=== PATIENT | female | born 1965 | race Caucasian/White ===

== ENCOUNTER 2024-11-01 06:25 | Observation (INO) ==
[2024-11-01] MEDS ORDERED: LIDOCAINE 2% PF 5 ML VIAL ONE (06:47)
[2024-11-01] MEDS ORDERED: DEXMEDETOMIDINE HCL 200 MCG/2 ML VIAL ONE (06:47)
[2024-11-01] MEDS ORDERED: TRANEXAMIC ACID 1,000 MG/10 ML VIAL ONE (06:47)
[2024-11-01] MEDS ORDERED: ePHEDrine 50 MG/5 ML SYRINGE (ANEST) IV ONE ×2 (06:47→10:13)
[2024-11-01] MEDS ORDERED: 0.9 % SODIUM CHLORIDE 100 ML IV ONE (06:47)
[2024-11-01] MEDS ORDERED: DEXAMETHASONE 10 MG/ML VIAL ONE (06:47)
[2024-11-01] MEDS ORDERED: METOCLOPRAMIDE 10 MG/2 ML VIAL ONE (06:47)
[2024-11-01] MEDS ORDERED: PHENYLephrine 1 MG/10 ML SYRINGE (ANEST) ONE ×2 (06:47)
[2024-11-01] MEDS ORDERED: GLYCOPYRROLATE 0.2 MG/ML VIAL IV ONE (06:47)
[2024-11-01] MEDS ORDERED: ONDANSETRON 4 MG/2 ML VIAL ONE (06:47)
[2024-11-01] MEDS ORDERED: KETAMINE 50 MG/ML Syringe IV ONE (06:48)
[2024-11-01] MEDS ORDERED: PROPOFOL 200 MG/20 ML VIAL IV ONE (06:49)
[2024-11-01] MEDS ORDERED: MIDAZOLAM 2 MG/2 ML VIAL ONE (06:49)
[2024-11-01] MEDS: ceFAZolin 2 GM in DEXTROSE 5% IN WATER 50 ML IV SCH (07:04)
[2024-11-01] MEDS: SCOPOLAMINE 1 PATCH PATCH TOPICAL ONE (07:21)
[2024-11-01] MEDS ORDERED: HYDROmorphone 0.5 MG/0.5 ML SYRINGE ONE (07:49)
[2024-11-01] MEDS: THROMBIN (BOVINE) 5,000 UNIT VIAL TOPICAL ONE (08:00)
[2024-11-01] MEDS: GELATIN SPONGE,ABSORBABLE 1 EACH SPONGE TOPICAL ONE (08:00)
[2024-11-01] MEDS ORDERED: FAMOTIDINE/PF 20 MG/2 ML VIAL IV ONE (08:25)
[2024-11-01] MEDS ORDERED: fentaNYL 100 MCG/2 ML VIAL ONE (09:34)
[2024-11-01] MEDS: BUPIVACAINE 0.25% 50 ML VIAL IJ ONE (10:30)
[2024-11-01] MEDS ORDERED: KETOROLAC 30 MG/ML VIAL ONE (10:37)
[2024-11-01] MEDS ORDERED: HYDROCODONE/APAP 7.5/325MG TABLET PO PRN (10:40)
[2024-11-01] MEDS ORDERED: BENZOCAINE/MENTHOL 1 LOZENGE PO PRN (10:40)
[2024-11-01] MEDS ORDERED: ONDANSETRON 4 MG ODT TABLET SL PRN (10:40)
[2024-11-01] MEDS ORDERED: PROMETHAZINE 25 MG/ML VIAL IV PRN (10:40)
[2024-11-01] MEDS ORDERED: ONDANSETRON 4 MG/2 ML VIAL IV PRN (11:05)
[2024-11-01] MEDS ORDERED: NALOXONE HCL 0.4 MG/ML VIAL IV PRN (11:05)
[2024-11-01] MEDS ORDERED: IPRATROPIUM/ALBUTEROL 3 ML AMPUL.NEB NEB PRN (11:05)
[2024-11-01] MEDS ORDERED: HYDROmorphone 0.5 MG/0.5 ML SYRINGE IV PRN (11:05)
[2024-11-01] MEDS: ONDANSETRON 4 MG/2 ML VIAL IV PRN (11:06)
[2024-11-01] MEDS: fentaNYL 100 MCG/2 ML VIAL IV PRN (11:12)
[2024-11-01] MEDS: METHOCARBAMOL 750 MG TABLET PO PRN (12:21)
[2024-11-01] MEDS: LACTATED RINGERS 1,000 ML IV SCH ×2 (13:50→13:51)
[2024-11-01] MEDS: 0.9 % SODIUM CHLORIDE 10 ML SYRINGE IV SCH (14:18)
[2024-11-01] MEDS: ceFAZolin 1 GM VIAL IV SCH (15:01)
[2024-11-01] MEDS: HYDROmorphone 1 MG/ML SYRINGE IV PRN (15:01)
[2024-11-01] MEDS: 0.9 % SODIUM CHLORIDE 1,000 ML IV SCH (15:02)
[2024-11-01] MEDS: SENNOSIDES 1 TABLET PO SCH (20:47)
[2024-11-01] MEDS: valACYclovir 500 MG TABLET PO SCH (21:15)
[2024-11-02] MEDS: HYDROmorphone 2 MG TABLET PO PRN (01:26)
[2024-11-02 06:38] LABS: Hemoglobin 10.3 g/dL (11.2-15.7)
[2024-11-02 06:47] LABS: Blood Urea Nitrogen 10 mg/dL (6-20); Calcium 8.8 mg/dL (8.6-10.4); Carbon Dioxide 25 mmol/L (22-30); Chloride 106 mmol/L (96-108); Glomerular Filtration Rate 94; Glucose 101 mg/dL (70-105); Potassium 4.3 mmol/L (3.3-5.1); Sodium 141 mmol/L (133-145)
[2024-11-02] MEDS: ACETAMINOPHEN 325 MG TABLET PO PRN (07:46)
[2024-11-02] MEDS: KETOROLAC 30 MG/ML VIAL IV ONE (07:54)
[2024-11-02] MEDS: ESTRADIOL 1 MG TABLET PO SCH (08:24)
[2024-11-02] MEDS: MAGNESIUM OXIDE 400 MG TABLET PO SCH (08:24)
[2024-11-02] MEDS: SERTRALINE 50 MG TABLET PO SCH (08:24)
[2024-11-02] MEDS: valACYclovir 500 MG TABLET PO SCH (08:25)
[2024-11-02] MEDS: MAGNESIUM HYDROXIDE 30 ML ORAL.SUSP PO PRN (10:59)
[2024-11-03 06:30] LABS: Hematocrit 29.6 % (34.1-44.9); Hemoglobin 9.7 g/dL (11.2-15.7)
[2024-11-03] MEDS: 0.9 % SODIUM CHLORIDE 250 ML IV SCH (07:07)
== END 2024-11-03 09:17 | disposition home or self-care (01) ==
LOC: SUR 06:25 → MEDSUR 06:25
PROVIDERS: ADMIT Orthopaedic Surgery Orthopaedic Surgery of the Spine; ATTEND Orthopaedic Surgery Orthopaedic Surgery of the Spine